=== PATIENT | female | born 1990 | race Caucasian/White ===

== ENCOUNTER 2020-11-11 20:26 | Emergency (ER) | payer OTHER ==
[2020-11-11] MEDS ORDERED: FAMOTIDINE 20 MG TABLET PO ONE (21:09)
[2020-11-11 21:12] VITALS: BP 130/81; PULSE 88; TEMP 98; BMI 40.2
[2020-11-11] MEDS ORDERED: FAMOTIDINE 20 MG TABLET ONE (21:13)
== END 2020-11-11 21:17 | disposition home or self-care (01) ==
LOC: FER 20:26
DX: R07.89 Other chest pain (principal); K21.9 Gastro-esophageal reflux disease without esophagitis
CPT/HCPCS: 93005; 99283-25